=== PATIENT | female | born 1990 | race American Indian/Alaskan Native ===

== ENCOUNTER 2016-06-18 22:37 | Emergency (ER) | payer MEDICAID ==
[2016-06-18 23:45] LABS: Basophils % (Auto) 0.4 % (0.0-1.8); Eosinophils % (Auto) 1.6 % (0.0-4.3); Hematocrit 37.9 % (30.3-42.9); Hemoglobin 12.4 gm/dl (10.1-14.3); Mean Corpuscular HGB Conc 33 % (30-34); Mean Corpuscular Hemoglobin 28 pg (28-32); Mean Corpuscular Volume 86 fl (79-97); Platelet Count 227 K/mm3 (140-440); Red Blood Count 4.42 M/mm3 (3.65-5.03); Red Cell Distribution Width 15.2 % (13.2-15.2); White Blood Count 6.9 K/mm3 (4.5-11.0)
[2016-06-18 23:51] LABS: Anion Gap 19 mmol/L; BUN/Creatinine Ratio 15.71; Blood Urea Nitrogen 11 mg/dL (7-17); Calcium 9.2 mg/dL (8.4-10.2); Carbon Dioxide 19 mmol/L (22-30); Chloride 102.8 mmol/L (98-107); Glucose 98 mg/dL (65-100); Potassium 3.6 mmol/L (3.6-5.0); Sodium 137 mmol/L (137-145)
[2016-06-19 09:28] VITALS: BP 98/64
--- NOTE | 2016-06-19 09:48 | XRay Report ---
ROUTINE CHEST, TWO VIEWS: Cough PA and lateral views demonstrate the heart and mediastinal contour to be of normal size and shape. The lungs are clear and fully expanded and the soft tissues and bony structures are normal. IMPRESSION: Normal study.
--- NOTE | 2016-06-19 10:24 | Emergency Department Report ---
ED General Adult HPI - General Chief complaint: Upper Respiratory Infection Stated complaint: SOB/THROAT PAIN/DIZZINESS Time Seen by Provider: 06/19/16 09:20 Source: patient Mode of arrival: Wheelchair Limitations: No Limitations - History of Present Illness Initial comments: The patient has a history of angioedema requiring intubation. She stated when that her endotracheal tube was removed she had a major aspiration and had to be reintubated and finally underwent tracheostomy. 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 She has chronic course for this which has not changed. She is here today because she is coughing up yellow phlegm feels though she has a sore throat. She has no difficulty in breathing. She has not measured her temperature but thinks she may have had a fever intermittently. She does use a home nebulizer machine periodically. She is not currently wheezing nor she short of breath. -: week(s) Consistency: intermittent, now resolved Improves with: none Worsens with: none Associated Symptoms: denies other symptoms - Related Data Home Medications Medication Instructions Recorded Confirmed Last Taken ALBUTEROL Inhaler [ProAir HFA 2 puff IH QID PRN 06/19/16 06/19/16 06/15/16 Inhaler] Budesoni/Formotero 160-4.5(Nf) 2 puff IH BID 06/19/16 06/19/16 06/15/16 [Symbicort 160-4.5 (Nf)] Famotidine [Pepcid] 40 mg PO QHS 06/19/16 06/19/16 06/15/16 Montelukast [Singulair] 10 mg PO QPM 06/19/16 06/19/16 06/15/16 Quetiapine Fumarate [Seroquel] 100 mg PO QHS 06/19/16 06/19/16 06/15/16 Sertraline [Zoloft] 50 mg PO QDAY 06/19/16 06/19/16 06/15/16 hydrOXYzine PAMOATE [Vistaril] 25 mg PO DAILY 06/19/16 06/19/16 06/15/16 Previous Rx's Medication Instructions Recorded Last Taken Type Benzonatate [Tessalon Perles] 100 mg PO Q8HR PRN #7 capsule 06/19/16 Unknown Rx Ciprofloxacin [Ciprofloxacin ORAL 500 mg PO Q12H #14 ml 06/19/16 Unknown Rx LIQ] Allergies Allergy/AdvReac Type Severity Reaction Status Date / Time Penicillins Allergy Angioedema Verified 06/18/16 23:01 risperidone [From Risperdal] Allergy Angioedema Verified 01/25/14 11:48 ED Review of Systems ROS: Stated complaint: SOB/THROAT PAIN/DIZZINESS Other details as noted in HPI Constitutional: denies: chills, fever Eyes: denies: eye pain, eye discharge, vision change ENT: denies: ear pain, throat pain Respiratory: cough. denies: shortness of breath, wheezing Cardiovascular: denies: chest pain, palpitations Endocrine: no symptoms reported Gastrointestinal: denies: abdominal pain, nausea, diarrhea Genitourinary: denies: urgency, dysuria, discharge Musculoskeletal: denies: back pain, joint swelling, arthralgia Skin: denies: rash, lesions Neurological: denies: headache, weakness, paresthesias Psychiatric: denies: anxiety, depression Hematological/Lymphatic: denies: easy bleeding, easy bruising ED Past Medical Hx - Past Medical History Previous Medical History?: Yes Hx Headaches / Migraines: Yes Hx Asthma: Yes Additional medical history: She is still being tested for multiple sclerosis and may have other possible neuro diagnoses - Surgical History Past Surgical History?: Yes Additional Surgical History: TRACH - Social History Smoking Status: Never Smoker Substance Use Type: None - Medications Home Medications: Home Medications Medication Instructions Recorded Confirmed Last Taken Type ALBUTEROL Inhaler [ProAir HFA 2 puff IH QID PRN 06/19/16 06/19/16 06/15/16 History Inhaler] Benzonatate [Tessalon Perles] 100 mg PO Q8HR PRN #7 capsule 06/19/16 Unknown Rx Budesoni/Formotero 160-4.5(Nf) 2 puff IH BID 06/19/16 06/19/16 06/15/16 History [Symbicort 160-4.5 (Nf)] Ciprofloxacin [Ciprofloxacin ORAL 500 mg PO Q12H #14 ml 06/19/16 Unknown Rx LIQ] Famotidine [Pepcid] 40 mg PO QHS 06/19/16 06/19/16 06/15/16 History Montelukast [Singulair] 10 mg PO QPM 06/19/16 06/19/16 06/15/16 History Quetiapine Fumarate [Seroquel] 100 mg PO QHS 06/19/16 06/19/16 06/15/16 History Sertraline [Zoloft] 50 mg PO QDAY 06/19/16 06/19/16 06/15/16 History hydrOXYzine PAMOATE [Vistaril] 25 mg PO DAILY 06/19/16 06/19/16 06/15/16 History ED Physical Exam - General Limitations: No Limitations General appearance: alert, in no apparent distress, other (dysphonia noted) - Head Head exam: Present: atraumatic, normocephalic - Eye Eye exam: Present: normal appearance, PERRL, EOMI. Absent: scleral icterus - ENT ENT exam: Present: normal exam, normal orophraynx, mucous membranes moist - Neck Neck exam: Present: normal inspection, other (healed surgical scars no signs of infection). Absent: tenderness, meningismus - Respiratory Respiratory exam: Present: normal lung sounds bilaterally. Absent: respiratory distress - Cardiovascular Cardiovascular Exam: Present: regular rate, normal rhythm. Absent: systolic murmur, diastolic murmur, rubs, gallop - GI/Abdominal GI/Abdominal exam: Present: soft, normal bowel sounds. Absent: distended, tenderness, guarding, rebound, rigid - Extremities Exam Extremities exam: Present: normal inspection - Back Exam Back exam: Present: normal inspection - Neurological Exam Neurological exam: Present: alert, oriented X3, CN II-XII intact, normal gait. Absent: motor sensory deficit - Psychiatric Psychiatric exam: Present: normal affect, normal mood - Skin Skin exam: Present: warm, dry, intact, normal color. Absent: rash ED Course Vital Signs 06/18/16 06/19/16 06/19/16 23:02 03:40 09:25 Temperature 98.2 F 98.0 F Pulse Rate 97 H 61 48 L Respiratory 18 12 18 Rate Blood Pressure 133/78 131/76 Blood Pressure 98/64 [Left] O2 Sat by Pulse 98 98 99 Oximetry - Reevaluation(s) Reevaluation #1: Patient found in no distress. She states that she has previously tolerated Cipro. That will be prescribed. 06/19/16 10:26 ED Medical Decision Making - Lab Data Result diagrams: 06/18/16 23:11 06/18/16 23:11 Laboratory Results - last 24 hr 06/18/16 06/18/16 23:11 23:11 WBC 6.9 RBC 4.42 Hgb 12.4 Hct 37.9 MCV 86 MCH 28 MCHC 33 RDW 15.2 Plt Count 227 Lymph % (Auto) 39.8 H Hunt % (Auto) 4.0 Eos % (Auto) 1.6 Baso % (Auto) 0.4 Lymph # 2.7 Hunt # 0.3 Eos # 0.1 Baso # 0.0 Seg Neutrophils % 54.2 Seg Neutrophils # 3.7 Sodium 137 Potassium 3.6 Chloride 102.8 Carbon Dioxide 19 L Anion Gap 19 BUN 11 Creatinine 0.7 Estimated GFR > 60 BUN/Creatinine Ratio 15.71 Glucose 98 Calcium 9.2 Critical care attestation.: If time is entered above; I have spent that time in minutes in the direct care of this critically ill patient, excluding procedure time. ED Disposition Clinical Impression: Acute bronchitis Qualifiers: Bronchitis organism: unspecified organism Qualified Code(s): J20.9 - Acute bronchitis, unspecified Disposition: DISCHARGED TO HOME OR SELFCARE Is pt being admited?: No Does the pt Need Aspirin: No Condition: Stable Instructions: Acute Bronchitis (ED) Additional Instructions: Follow-up with usual ENT physician and primary care. Rx as directed return any acute change or problem. Prescriptions: Benzonatate [Tessalon Perles] 100 mg PO Q8HR PRN #7 capsule PRN Reason: Cough Ciprofloxacin [Ciprofloxacin ORAL LIQ] 500 mg PO Q12H #14 ml Referrals: MANI TANG JR, MD [Primary Care Provider] - 3-5 Days Time of Disposition: 10:27
== END 2016-06-19 10:48 | disposition home or self-care (01) ==
LOC: ED 22:37
DX: J20.9 Acute bronchitis, unspecified (principal); G43.909 Migraine, unspecified, not intractable, without status migrainosus; J45.909 Unspecified asthma, uncomplicated; Z88.0 Allergy status to penicillin; Z88.8 Allergy status to other drugs, medicaments and biological substances
CPT/HCPCS: 36415; 71020; 80048; 85025